=== PATIENT | female | born 1990 | race Two or more races ===

== ENCOUNTER → 2020-07-02 10:42 | Outpatient (CLI) | payer BC, SELFPAY ==
--- NOTE | ~2020-07-02 | US_ITS ---
EXAMINATION: US abdomen limited DATE: 07/02/2020 11:18 INDICATION: Right upper quadrant palpable mass. TECHNIQUE: Multiple grayscale and Doppler ultrasound images of the abdomen were obtained. COMPARISON: None FINDINGS: In the patient's area of concern in the right upper quadrant, there is a 3.2 x 1.7 x 3.7 cm subcutaneous mass that demonstrates similar echogenicity and echotexture when compared to the normal subcutaneous fat. The visualized portions of the head and body of the pancreas are normal. The liver is normal without focal lesion. No liver surface nodularity. There is normal flow in main portal vei n. The gallbladder is normal in size. No gallstones or gallbladder wall thickening. There was no sono graphic Rouse sign. The common duct is normal and measures 3 mm. IMPRESSION: 1. 3.7 cm subcutaneous mass in right upper quadrant, consistent with a lipoma. Reviewed, dictated and finalized at location B.
== END ==
PROVIDERS: PCP Family Medicine; Visit Provider Family Medicine
DX: R19.01 Right upper quadrant abdominal swelling, mass and lump (principal)
CPT/HCPCS: 76705